=== PATIENT | female | born 1960 ===

== ENCOUNTER → 2023-12-30 14:44 | Outpatient (BNVA) | payer MEDICAID, SELFPAY | PROVIDERS: Family Provider Family Medicine; PCP Family Medicine; Referring Provider Nurse Practitioner Family; Visit Provider Student in an Organized Health Care Education/Training Program | DX: M79.642 Pain in left hand; M79.5 Residual foreign body in soft tissue | CPT/HCPCS: 73130 ==

== ENCOUNTER 2025-01-18 09:28 | Day surgery (SDC) | payer MEDICAID, SELFPAY ==
[2025-01-18 09:42] VITALS: BP 173/104; PULSE 113; RESP 18; TEMP 36.1; O2SAT 97; BMI 30.9
--- NOTE | 2025-01-18 09:44 | ANES.PREANE2 ---
Pre-Anesthetic Assessment Height/Weight: Height 1.63 m Preop Diagnosis: Screening Operation Date: 01/18/25 10:30 Proposed Procedures p Colonoscopy 12832 G0121 Z12.11(Not Applicable) - Charles Martinez MD Was Beta Burt taken within 24 hours: Yes Was Clonidine taken within 24 hours: N/A Social Tobacco THC Exam alert, oriented x 3, clear to auscultation bilaterally and regular rate & rhythm Airway Submandibular: within normal limits Cervical ROM: within normal limits Mallampati: Class II Dentition: chipped and loose Comments: Comments: very poor dentition. Many loose teeth History/ROS No significant history except as noted and No significant complaints Pulmonary Chronic Obstructive Pulmonary Disease, Cough, Exertional Dyspnea and Shortness of Breath CV/HEM Hypertension None reported Hepatic None reported GI None reported Metabolic None reported Musc/skel None reported Neuropsych None reported Anesthetic Plan ASA status: 3 Anesthesia: Anesthesia Evaluation and MAC Risk of > 500 ml blood loss (7ml/kg in children): No Medications/Allergies Home Medications ?Medication ?Instructions ?Recorded ?Confirmed ?Last Taken ?Type amlodipine 10 mg tablet 10 mg PO DAILY 12/30/23 01/12/25 01/17/25 08:00 History lisinopril 20 mg tablet 20 mg PO DAILY 12/30/23 01/12/25 01/17/25 08:00 History aspirin 81 mg tablet,delayed 81 mg PO DAILY 01/12/25 01/12/25 01/17/25 08:00 History release simvastatin 10 mg tablet 10 mg PO BEDTIME 01/12/25 01/12/25 01/17/25 08:00 History Allergies Allergy/AdvReac Type Severity Reaction Status Date / Time Penicillins Allergy hives, Verified 01/18/25 09:38 itching and rash COUNTS INCLUDE 234 BEDS AT [facility] Anesthesia Family History Mother CAD (coronary artery disease) Father Diabetes mellitus type 1 Brother Diabetes Cancer Social History Smoking and tobacco/nicotine status: never used tobacco/nicotine Data Anesthesia Cardiac Studies: No Data to Display
--- NOTE | 2025-01-18 09:53 | W.PM.OPSUD ---
Surgery/Procedure H&P Update DATE OF PROCEDURE: January 18, 2025 DATE H&P PERFORMED: 12/27/24 H&P UPDATE INFORMATION: I have reviewed H&P completed within last 30 days, I have examined patient prior to procedure and No changes to prior documentation PREOP DIAGNOSIS: Screening PLANNED PROCEDURE: Operation Date: 01/18/25 10:30 Proposed Procedures p Colonoscopy 67283 G0121 Z12.11(Not Applicable) - Charles Martinez MD
[2025-01-18] MEDS: sodium chloride 0.9% 1,000 ML 30 ML IV (09:54)
[2025-01-18 10:36] VITALS: BP 113/67; PULSE 73; RESP 18; TEMP 36.2; O2SAT 95
[2025-01-18 10:47] VITALS: BP 117/79; PULSE 80; RESP 18; O2SAT 98
--- NOTE | 2025-01-18 12:36 | ANE.PACU2 ---
Inpatient post-anesthesia follow up: Airway intact: Yes Vital signs: Temperature 97.1 F Pulse Rate 80 Respiratory Rate 18 Blood Pressure 117/79 Pulse Oximetry 98 Oxygen Delivery Me thod Room Air Oxygen Flow Rate Fraction of Inspir ed Oxygen Hydration adequate: Yes Nausea and vomiting: No Pain level: 1 Mental status: Baseline
== END 2025-01-18 11:04 | disposition home or self-care (01) ==
PROVIDERS: PCP Nurse Practitioner Family; Visit Provider Student in an Organized Health Care Education/Training Program
PROC: 0DJD8ZZ Inspection of Lower Intestinal Tract, Via Natural or Artificial Opening Endoscopic (ICD-10-PCS; CPT 45378; principal; 2025-01-18 10:30)
DX: Z12.11 Encounter for screening for malignant neoplasm of colon (principal); K57.30 Diverticulosis of large intestine without perforation or abscess without bleeding; J44.9 Chronic obstructive pulmonary disease, unspecified; I10 Essential (primary) hypertension; Z79.899 Other long term (current) drug therapy; Z79.82 Long term (current) use of aspirin; Z88.0 Allergy status to penicillin
CPT/HCPCS: 45378; J2704; J7030; J9999